=== PATIENT | female | born 2000 | race Caucasian/White ===

== ENCOUNTER 2025-02-21 05:04 | Inpatient (IN) | payer OTHER, MEDICAID ==
[2025-02-21] MEDS ORDERED: Water For Irrigation,Sterile 1,000 ML Container IRR PRN (05:17)
[2025-02-21] MEDS ORDERED: Terbutaline 1 MG/ML SDV SUBCUT PRN (05:17)
[2025-02-21] MEDS ORDERED: Carboprost Tromethamine 250 MCG/1 mL Vial IM PRN (05:17)
[2025-02-21] MEDS ORDERED: Sodium Chloride 0.9% 10 ML Syringe FLUSH PRN (05:17)
[2025-02-21] MEDS ORDERED: Sodium Chloride 0.9% 2.5 ML Syringe FLUSH PRN (05:17)
[2025-02-21] MEDS ORDERED: Oxytocin/0.9 % Sodium Chloride 30 UNIT/500 ML BAG IV SCH (05:30)
[2025-02-21 06:25] LABS: MEAN PLATELET VOLUME 11.4 fL (9.4-12.3); NRBC ABSOLUTE 0.00 K/uL (0.00-0.02); NRBC PERCENT 0.0 /100WBC (0.0-0.2); PLATELET COUNT,PLT 152 K/uL (150-400); RED BLOOD CELL COUNT 4.07 M/uL (4.10-5.30); WHITE BLOOD CELL COUNT,WBC 8.56 K/uL (3.9-11.3)
[2025-02-21] MEDS: Oxytocin/0.9 % Sodium Chloride 30 UNIT/500 ML BAG IV SCH (06:36)
[2025-02-21] MEDS: Lactated Ringers 1,000 ML IV SCH (06:36)
[2025-02-21] MEDS ORDERED: ePHEDrine 50 MG/ML SDV IVPUSH PRN (06:47)
[2025-02-21] MEDS ORDERED: dexmedeTOMIDine HCl 200 MCG/2 ML SDV EPIDUR SCH (07:00)
[2025-02-21] MEDS: Nalbuphine 10 MG/1 ML Vial IVPUSH PRN (12:01)
[2025-02-21] MEDS: Ropivacaine HCl/PF 400 MG in Premix Bag 1 BAG EPIDUR SCH (12:25)
[2025-02-21] MEDS: Ondansetron 4 MG/2 ML SDV IVPUSH PRN (15:20)
[2025-02-21] MEDS ORDERED: Lanolin 100% Cream 7 GM Tube TOP PRN (16:53)
[2025-02-21 17:13] LABS: PH,UMBILICAL ARTERIAL 7.429 (7.18-7.38)
[2025-02-21 17:14] LABS: PH,UMBILICAL VENOUS 7.33 (7.25-7.45)
[2025-02-21] MEDS: Witch Hazel Medicated Pads 40/Jar TOP PRN (19:00)
[2025-02-21] MEDS: Benzocaine/Menthol 20%-0.5% Spray 78 GM Cannister TOP PRN (19:00)
== END 2025-02-22 18:24 | disposition home or self-care (01) | DRG 807 ==
LOC: MW.OB 05:04 → OBSVTOIN 16:54 → MW.OB 16:54
PROVIDERS: ADMIT Obstetrics & Gynecology; ATTEND Obstetrics & Gynecology
PROC: 10907ZC Drainage of Amniotic Fluid, Therapeutic from Products of Conception, Via Natural or Artificial Opening (ICD-10-PCS; principal; 2025-02-21)
PROC: 10E0XZZ Delivery of Products of Conception, External Approach (ICD-10-PCS; 2025-02-21)
PROC: 4A1HXCZ Monitoring of Products of Conception, Cardiac Rate, External Approach (ICD-10-PCS; 2025-02-21)
PROC: 3E0R3BZ Introduction of Anesthetic Agent into Spinal Canal, Percutaneous Approach (ICD-10-PCS; 2025-02-21)
PROC: 00HU33Z Insertion of Infusion Device into Spinal Canal, Percutaneous Approach (ICD-10-PCS; 2025-02-21)
DX: O48.0 Post-term pregnancy (principal); Z37.0 Single live birth; Z3A.41 41 weeks gestation of pregnancy
CPT/HCPCS: 36415; 51702; 59025; 59409; 82803; 85014; 85018; 85027; 86592; 86850; 86900; 86901; A9270-GY; J2300; J2405; J2590; J2795; J7120